=== PATIENT | female | born 1965 ===

== ENCOUNTER 2017-12-30 01:11 | Emergency (ER) | payer SELFPAY ==
[~2017-12-30] VITALS: Ht 160 cm; Wt 90.7 kg
[2017-12-30] MEDS ORDERED: ONDANSETRON HCL 4 MG/2 ML VIAL IV ONE ×2 (03:00→05:00)
[2017-12-30] MEDS ORDERED: MORPHINE SULFATE 4 MG/ML SYR/VIAL IV ONE (03:00)
[2017-12-30] MEDS ORDERED: HYDROmorphone HCL 2 MG/ML VL IV ONE ×2 (05:00→06:15)
[2017-12-30 05:55] VITALS: BP 119/71
[2017-12-30 07:16] LABS: INR 0.99 (0.9-1.15); Partial Thromboplastin Time 25.5 sec (23.78-33.04); Prothrombin Time 10.6 sec (9.27-12.13)
[2017-12-30 07:20] LABS: Potassium 4.4 mmol/L (3.5-5.1)
== END 2017-12-30 06:25 | disposition short-term general hospital (02) ==
LOC: ER 01:11
DX: S12.500A Unspecified displaced fracture of sixth cervical vertebra, initial encounter for closed fracture (principal); S12.43 Unspecified traumatic spondylolisthesis of fifth cervical vertebra; S22.32XA Fracture of one rib, left side, initial encounter for closed fracture; S27.0XXA Traumatic pneumothorax, initial encounter; V43.62XA Car passenger injured in collision with other type car in traffic accident, initial encounter; Y93.89 Activity, other specified; Y99.8 Other external cause status; Y92.410 Unspecified street and highway as the place of occurrence of the external cause
CPT/HCPCS: 36415; 70450; 71250; 72125; 72128; 72131; 74176; 80048; 85610; 85730; 93005; 96374; 96375; 96376; 99285; J1170; J2270; J2405; L0120